=== PATIENT | male | born 1965 | race Caucasian/White ===

== ENCOUNTER 2021-06-15 11:08 | Emergency (ER) | payer OTHER, SELFPAY ==
[2021-06-15 11:14] VITALS: BP 168/106; PULSE 68; RESP 14; TEMP 36.2; O2SAT 99
--- NOTE | 2021-06-15 11:38 | ED.GENADULT ---
HPI - General Adult General Chief complaint: Abdominal Pain Stated complaint: possible hernia Time Seen by Provider: 06/15/21 11:30 Source: patient Mode of arrival: Ambulatory Limitations: no limitations History of Present Illness HPI narrative: Patient is a 56-year-old male here for evaluation he thinks is a possible right-sided inguinal hernia. 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 He states that over the past couple days he has noticed some discomfort in his right anterior thigh that does sometimes radiate down to his knee. No urinary symptoms. No testicular pain. No change in bowel habits. No prior abdominal surgeries. He also has a rash on his right anterior chest. He states that in the past he has been told that this was a fungal infection as use some cream in the past. I potentially improve somewhat with the cream but never completely went away. It has not changed in the past year. Related Data Previous Rx's Medication Instructions Recorded ketoconazole 2 % topical cream 1 applic TOPICAL BID #15 g 06/15/21 Allergies Allergy/AdvReac Type Severity Reaction Status Date / Time No Known Drug Allergies Allergy Verified 06/15/21 11:18 Review of Systems Constitutional Constitutional: Denies fever(s) Cardiovascular Cardiovascular: Reports system reviewed and no additional complaints, except as documented Respiratory Respiratory: Reports system reviewed and no additional complaints, except as documented Gastrointestinal Gastrointestinal: Reports as per HPI Genitourinary Genitourinary: Reports as per HPI Musculoskeletal Musculoskeletal: Reports system reviewed and no additional complaints, except as documented Integumentary/Breasts Skin/Breast: Reports as per HPI Neurologic Neurologic: Reports system reviewed and no additional complaints, except as documented Hematologic/Lymphatic On Anticoagulants: No Patient History Medical History Right groin pain Skin lesion Social History Smoking Status: Current every day smoker Smoking Status: Current every day smoker alcohol intake frequency: 0-2 drinks per day Substance Use Type: does not use Exam Initial Vital Signs Initial Vital Signs: Vital Signs Temperature 97.1 F L 06/15/21 11:14 Pulse Rate 68 06/15/21 11:14 Respiratory Rate 14 06/15/21 11:14 Blood Pressure 168/106 H 06/15/21 11:14 Pulse Oximetry 99 06/15/21 11:14 HENMT Head: normal to inspection and normocephalic Resp Effort & Inspection: normal respiratory effort Cardio Rate: regular rate GI Inspection: normal to inspection and non-distended Palpation: soft and No tender Other: Normal external male genitalia. Circumcised. Testicles normal bilateral. No inguinal hernia felt on exam. Skin Other: Patient does have a well-circumscribed lesion on his right anterior chest that does have some Center crusting. No drainage. Neuro General: patient alert, patient awake and patient oriented x3 Extrem General: normal to inspection and capillary refill normal Psych Appearance: grossly normal and well kempt Course Vital Signs Vital signs: Vital Signs - 8 hr 06/15/21 11:14 Temperature 97.1 F L Pulse Rate 68 Respiratory Rate 14 Blood Pressure 168/106 H Pulse Oximetry 99 Medical Decision Making MDM Narrative Medical decision making narrative: The skin lesion on his right anterior chest does have quite a bit of findings consistent with a fungal infection. Will place him on cream for this. He was informed that if his symptoms do not improve with his cream that he does need to follow-up with his primary doctor to discuss referral to see Dermatology has other issues such as cancers would be on the list. His exam today is most consistent with a hip flexor muscle strain and not hernia. His testicles are unremarkable. No indication for surgical consultation. We did discuss return precautions for this as well. He expressed understanding and agreement. Discharge Plan Departure Patient Disposition: Home Clinical Impression: Right groin pain, Skin lesion Instructions: DI for Rash Activity Restrictions/Additional Instructions: I do recommend you contact your primary doctor because if the cream that we put you on today does not improve the rash you do need to see Dermatology. Also recommend that you try to decrease your activities I suspect that the right groin pain is muscular in origin. Return to the emergency department for any new or worsening symptoms. Prescriptions: New ketoconazole 2 % cream 1 applic topical BID Qty: 15 RF: 0 Referrals: Miscellaneous,DoctorMD [Primary Care Provider] -
== END 2021-06-15 12:04 | disposition home or self-care (01) ==
PROVIDERS: Emergency Provider Emergency Medicine
DX: R10.30 Lower abdominal pain, unspecified (principal); L98.9 Disorder of the skin and subcutaneous tissue, unspecified
CPT/HCPCS: 99281